=== PATIENT | female | born 1980 | race African-American/Black ===

== ENCOUNTER 2023-12-29 13:33 | Emergency (ER) | payer OTHER ==
[~2023-12-29] VITALS: Ht 152.4 cm; Wt 74.8 kg
[2023-12-29] MEDS ORDERED: TORADOL 60MG/2ML INJ IM ONE ×2 (14:14→14:22)
[2023-12-29] MEDS ORDERED: DEXAMETHASONE SODIUM PHOSPHATE 4 MG INJ IM ONE (14:15)
[2023-12-29] MEDS ORDERED: DEXAMETHASONE SODIUM PHOSPHATE 4 MG INJ ONE (14:22)
== END 2023-12-29 15:09 | disposition home or self-care (01) ==
LOC: ED 13:33
DX: S39.012A Strain of muscle, fascia and tendon of lower back, initial encounter (principal); R30.0 Dysuria
CPT/HCPCS: 81000; 81025; 96372; 99283; J1100; J1885